=== PATIENT | female | born 1950 | race Caucasian/White ===

== ENCOUNTER 2021-09-19 21:14 | Emergency (ER) | payer BC, OTHER ==
[~2021-09-19] VITALS: Ht 157.5 cm; Wt 72.6 kg
[2021-09-19 21:49] VITALS: BP_SYST 140
[2021-09-19] MEDS ORDERED: CEPH250C PO (22:43)
[2021-09-19] MEDS ORDERED: PHEN-726 PO (22:43)
[2021-09-19] MEDS ORDERED: PHENAZOPYRIDINE HCL 100 MG TABLET PO ONE (22:45)
[2021-09-19] MEDS ORDERED: cephALEXin 500 MG CAPSULE PO ONE (22:45)
[2021-09-19 23:20] LABS: BILIRUBIN,URINE NEGATIVE (NEGATIVE); BLOOD, URINE 3+ (NEGATIVE); CLARITY/URINE CLEAR (CLEAR); COLOR,URINE YELLOW (YELLOW); GLUCOSE,URINE NEGATIVE (NEGATIVE); KETONES,URINE TRACE (NEGATIVE); LEUKOCYTE ESTERASE ,URINE 2+ (NEGATIVE); NITRITE, URINE POSITIVE (NEGATIVE); PROTEIN URINE 2+ (NEGATIVE)
[2021-09-20 00:10] VITALS: BP_SYST 135
[2021-09-20 00:54] LABS: BACTERIA,URINE FEW /HPF (None Seen); RBC,URINE 20-50 /HPF (0-3); WBC,URINE 20-50 /HPF (0-3)
[2021-09-20 00:55] LABS: MUCUS,URINE 1+ /LPF (None Seen)
== END 2021-09-20 00:10 | disposition home or self-care (01) ==
LOC: SED 21:14
DX: N39.0 Urinary tract infection, site not specified (principal)
CPT/HCPCS: 81000; 87086; 99283